=== PATIENT | male | born 1985 | race Caucasian/White ===

== ENCOUNTER 2019-07-18 09:05 | Emergency (ER) | payer OTHER ==
[~2019-07-18] VITALS: Ht 185.4 cm; Wt 127.0 kg
[~2019-07-18 09:05] MED LIST: FENTANYL PA25 MCG/HR; IBUPROFEN 800800 M1 PO; LAMICTAL XR200 MG PO; NAPROSYN500 MG PO; NORCO 10-325 T1 EACH PO; NORCO 5-325 TA1 EACH PO; TOPAMAX200 MG PO; VALIUM5 MG PO; VIMPAT100 MG PO
[2019-07-18] MEDS ORDERED: IBUPROFEN 800800 M1 PO (09:27)
[2019-07-18 10:06] LABS: URINE BLOOD NEGATIVE (Negative); URINE CLARITY CLEAR; URINE COLOR YELLOW; URINE GLUCOSE-RANDOM* NEGATIVE (Negative); URINE KETONES TRACE (Negative); URINE LEUKOCYTES-REFLEX NEGATIVE (Negative); URINE NITRITE-REFLEX NEGATIVE (Negative); URINE PROTEIN (DIPSTICK) NEGATIVE (Negative); URINE SPECIFIC GRAVITY >= 1.030 (1.005-1.035)
[2019-07-18 10:10] LABS: ICTOTEST (BILI CONFIRMATORY) Negative (Negative); URINE BILIRUBIN NEGATIVE (Negative)
[2019-07-18 10:11] LABS: ABSOLUTE NEUTROPHILS 10.5 thou/uL (1.4-8.2); BASOPHILS 0.4 % (0.0-2.0); EOSINOPHILS 0.4 % (0.0-3.0); HEMATOCRIT 46.1 % (42.0-52.0); HEMOGLOBIN 15.5 gm/dL (14.0-18.0); LYMPHOCYTES 9.8 % (24.0-44.0); MCH 30.4 pg (26.0-34.0); MCHC 33.6 g/dL (28.0-37.0); MCV 90.3 fL (80.0-100.0); MONOCYTES 6.1 % (1.0-8.0); PLATELET COUNT 252 thou/uL (150-400); POLYS 83.3 % (36.0-66.0); RBC 5.11 mil/uL (4.50-6.00); RDW 13.7 % (10.5-14.5); WBC 12.6 thou/uL (4.0-11.0)
[2019-07-18 10:20] LABS: CALCIUM 9.8 mg/dL (8.5-10.1); CREATININE 1.3 mg/dL (0.7-1.3); POTASSIUM 3.9 mmol/L (3.5-5.1)
[2019-07-18] MEDS ORDERED: NEURONTIN 300M300 M2 PO (11:56)
[2019-07-18] MEDS ORDERED: NORCO 5-325 TA1 EAC1 PO (11:56)
[2019-07-18 12:27] VITALS: BP 136/69
[2019-07-18] MEDS ORDERED: ZOFRAN ODT4 MG PO (12:39)
== END 2019-07-18 12:27 | disposition home or self-care (01) ==
LOC: ER 09:05
PROVIDERS: Emergency Medicine
DX: M54.16 Radiculopathy, lumbar region (principal); Z88.0 Allergy status to penicillin; Z88.1 Allergy status to other antibiotic agents; Z88.6 Allergy status to analgesic agent; Z88.8 Allergy status to other drugs, medicaments and biological substances